=== PATIENT | male | born 1970 | race Caucasian/White ===

== ENCOUNTER 2025-07-16 06:23 | Day surgery (SDC) | payer OTHER, SELFPAY ==
--- OUTSIDE RECORDS SUMMARY | 2025-07-05 13:33 | XMS_ITS | Patient Health Record ---
Author Organization [facility] Address [address] [place] [address] Care Team Providers Care Student Finance Specialist Name Role Phone ANTHONY VIKASCALIXTO Primary Care Provider U Troy Francis Jr Unavailable [phone] Allergies No Known Allergies Reason For Referral Referring Provider First Name Gil Referring Provider Last Name Hortencia Referring Provider Speciality Internal M edicine Referred Organization [facility] Referred Provider Troy Rosales Jr Referred Address [address] [facility],[place], [place],[address], Referred Provider Specialty Gastroentero logy General Notes Bessie Griffin 2024 02:11:23 PM > REQUESTED A FAMILY HEALTH PLAN REFERRAL FOR VISIT WITH DR ROSALES ON 04-18-25 (SAID MARCH 14 ) [phone] screening colon Referral Priority Routine Medications Medication SIG (Take, Route, Frequency, Duration) Notes Start Date End Date Status Sertraline HCl 25 MG Tablet 1 tablet Orally Once a day; Duration: 30 day(s) 04/18/2025 Active Flonase 04/18/2025 Active Immunizations Vaccine Route Administration Date Status Comme nts Influenza Unknown 05/01/2024 Administered Social History Tobacco Use: Social History Observation Description Date Details (start date - stop date) Never Smoker NA - NA Social History Drug/Alcohol: Social Info Question Answer Notes AUDIT-C (Standard) Did you have a drink containing alcohol in the past year? No Points 0 Interpretation Negative Tobacco Use: Social Info Question Answer Notes Tobacco Control (Standard) Tobacco use: Nonsmoker Additional Details Category Social Info Options Details Miscellaneous: Marital status: Occupation: works full-time Problems Problem Type SNOMED Code ICD Code Onset Dates Problem Status W/U Status Risk Notes Problem Gastrointestinal tract problem (814759352) Abn findings-GI tract (R93.3) Active confirmed Problem Ulcerative colitis (14925124) Ulcerative colitis (K51.90) Active confirmed Vital Signs Temperature 98.9 degrees Fahrenheit 04/18/2025 Blood pressure diastolic 01 mm Hg 04/18/2025 Height 69 in 04/18/2025 Blood pressure systolic 001 mm Hg 04/18/2025 Weight 201 lbs 04/18/2025 BMI 29.68 kg/m2 04/18/2025 Encounters Encounter Location Date Provider Diagnosis [facility] [address] [place] [id number] 04/18/2025 Troy Rosales Jr Ulcerative colitis K51.90 and Abn findings-GI tract R93.3 [facility] [address] [place] [id number] 04/18/2025 Troy Rosales Jr Assessments Encounter Date Diagnosis (ICD Code) Assessment Notes Treatment Notes Treatment Clinical Notes Section Notes 04/18/2025 Abn findings-GI tract (ICD-10 - R93.3) At this time, he is doing well. We discussed ulcerative colitis today. He is due for follow-up colonoscopy. This will be arranged at his convenience. He will remain off medications based on his lack of clinical symptoms. We did discuss using MiraLAX more aggressively for his constipation. 04/18/2025 Ulcerative colitis (ICD-10 - K51.90) At this time, he is doing well. We discussed ulcerative colitis today. He is due for follow-up colonoscopy. This will be arranged at his convenience. He will remain off medications based on his lack of clinical symptoms. We did discuss using MiraLAX more aggressively for his constipation. Plan Of Treatment Future Test Test Name Order Date COLONOSCOPY 04/18/2025 Next Appt Details Provider Name:Troy blakely Jr, 07/16/2025 07:30:00 AM, [address] [facility] , [place], [place], [id number], Insurance Providers Payer Name Payer Address Payer Phone Subscriber Number Group Number Insured Name Patient Relationship to Insured Coverage Start Date Coverage End Date [facility] ([employer]) [address] [place] [address] [id number] JENNA DORADO Self - patient is the insured Medical (General) History Medical History History ICD Code melanoma in 2007 stage 3 lymphedema in right arm Ulcerative colitis, diagnose d 1995, previous treatment with sulfasalazine and steroids, off all treatment since before last colonoscopy in 2019 which was normal. Surgical History Surgery Date(Month/Year) lymph nodes removed on right flank broken left leg, tibia, fibula, pins
[2025-07-10 11:50] VITALS: BMI 29.7
--- NOTE | 2025-07-10 13:55 | HO.ANESPROP2 ---
Documented by User: Rocío Shine NP 07/10/25 13:55 HPI - Anesthesia Eval Consult details Narrative: 54yo M for Colonoscopy [facility] Past Medical History Medical History Ulcerative colitis Lymphedema Melanoma Surgical History Surgical History History of arthroscopy of both knees History of open reduction and internal fixation (ORIF) procedure Hx of lymph node excision H/O colonoscopy Social History Social History Household Members: Spouse Patient Tobacco Use Status: Never used Tobacco Use of substances other than those prescribed or required for medical reasons: No Are you DNR?: No Advance Directives: No Advance Directives Information Provided: Yes Meds Allergies Allergy/AdvReac Type Severity Reaction Status Date / Time No Known Allergies Allergy Verified 07/10/25 11:46 Home Medications ?Medication ?Instructions ?Recorded ?Confirmed ?Last Taken ?Type fluticasone propionate 50 1 spray intranasal DAILY PRN 07/10/25 07/10/25 Unknown History mcg/actuation nasal allergies spray,suspension sertraline 25 mg tablet 25 mg PO DAILY 07/10/25 07/16/25 07/16/25 History Exam Height,Weight and Vital Signs: Height 5 ft 9 in Weight 91.172 kg Assessment and Plan Assessment Anesthesia Assessment: Chart Reviewed Documented by User: Moe Vivas MD 07/16/25 08:21 [facility] Past Medical History Medical History Ulcerative colitis Lymphedema Melanoma Family History Family history of problems with anesthesia: No Surgical History Surgical History History of arthroscopy of both knees History of open reduction and internal fixation (ORIF) procedure Hx of lymph node excision H/O colonoscopy History of Problems with Anesthesia: No Social History Social History Household Members: Spouse Patient Tobacco Use Status: Never used Tobacco Use of substances other than those prescribed or required for medical reasons: No Are you DNR?: No Advance Directives: No Advance Directives Information Provided: Yes Meds Allergies Allergy/AdvReac Type Severity Reaction Status Date / Time No Known Allergies Allergy Verified 07/10/25 11:46 Home Medications ?Medication ?Instructions ?Recorded ?Confirmed ?Last Taken ?Type fluticasone propionate 50 1 spray intranasal DAILY PRN 07/10/25 07/10/25 Unknown History mcg/actuation nasal allergies spray,suspension sertraline 25 mg tablet 25 mg PO DAILY 07/10/25 07/16/25 07/16/25 History Exam Exam Date and Time: 07/16/25 Airway Mallampati Class: II TM Dist: >3cm Neck ROM: Full Heart: rrr Lungs: ctab vesicular Assessment and Plan Assessment Anesthesia Assessment: Anesthesia Plan Discussed Final Anesthetic Review Family History of Problems with Anesthesia: No History of Problems with Anesthesia: No NPO: Yes ASA Class: II Final Preanesthetic Review: No Changes in Pt Med Stat, Meds/Allgs Chart Reviewed, Consent Obtained/Reviewed and Anes Risks/Benef Reviewed Patient Risk: Low Procedure Risk: Low Anesthetic Plan Anesthetic Plan: MAC: Disposition: Standard PACU
[2025-07-16 07:02] VITALS: BMI 28.6
[2025-07-16 07:04] VITALS: BP 127/85; PULSE 71; RESP 16; TEMP 36.3; O2SAT 97
[2025-07-16] MEDS: Lactated Ringers 1,000 ML 100 ML IVCONT (07:22)
--- NOTE | 2025-07-16 07:40 | MHC.SHP ---
Pre-Procedural Eval Section A - 24 Hr Update-Section A only Date of Service: 07/16/25 Section B - Complete if H&P > 30 days Chief Complaint: ulcerative colitis,abnormal findings Details of Present Illness: see H&P no changes Relevant Family History (Specify if Yes): No Relevant Social History: None Present Medications: see Short Stay Collaborative assessment Medical History: No relevant PMH Allergies: Allergies Allergy/AdvReac Type Severity Reaction Status Date / Time No Known Allergies Allergy Verified 07/10/25 11:46 Review of Systems Sugical H&P ROS: Negative: Constitution, Cardiovascular, Respiratory, Neurological, Psychiatric, Hem-Onc, Allergic/Immunologic, Gastrointestinal, Genitourinary, Musculoskeletal, Integumentary, Endocrine and Eyes/Ears/Nose/Throat Exam Surgical H&P Exam: Normal: HEENT, Normal: Heart, Normal: Lungs, Normal: Extremities, Normal: Abdomen, Normal: Skin and Normal: Neurological Plan Diagnosis/Plan: Unchanged I have reviewed the history and physical and performed a pertinent physical examination on my patient. No changes have occurred unless specified. Time Spent With Patient Time: Total time managing care of this patient today ____ minutes.
[2025-07-16 08:30] VITALS: BP 133/88; PULSE 58; RESP 12; TEMP 36.1; O2SAT 98
[2025-07-16 08:45] VITALS: BP 121/85; PULSE 60; RESP 16; TEMP 36.1; O2SAT 98
--- NOTE | 2025-07-17 07:01 | OP_ITS ---
DATE OF SERVICE: 07/16/2025 SURGEON: Troy Seth MD INDICATIONS: Ulcerative colitis. PREOPERATIVE DIAGNOSIS: POSTOPERATIVE DIAGNOSIS: PROCEDURE PERFORMED: Colonoscopy to the cecum with biopsy. ESTIMATED BLOOD LOSS: COMPLICATIONS: ANESTHESIA: ASSISTANTS: SPECIMENS: MEDICATIONS: Monitored anesthesia care. DESCRIPTION OF PROCEDURE: A history and physical performed. The risks and benefits of the procedure were explained to the patient. An informed consent was obtained. The patient was placed in the left lateral decubitus position. A digital rectal exam was performed and was found to be normal. The Olympus pediatric video colonoscope was introduced into the rectum and advanced to the cecum. The cecum was identified by transillumination, palpation, and identification of ileocecal valve. Examination was performed. The scope was removed. He tolerated the procedure well and was returned to recovery area in stable condition. FINDINGS: The terminal ileum was not examined. The visualized colonic mucosa was normal. The quality of the prep was good. Biopsies were obtained throughout the colon. There was no evidence of active colitis. No polyps were seen. Retroflexed examination showed internal hemorrhoids. IMPRESSION: Normal colonoscopy. RECOMMENDATION: Follow up the biopsy results. MD RUCHI Sandoval/KELLL / [id number]
== END 2025-07-16 09:06 | disposition home or self-care (01) ==
PROVIDERS: PCP Nurse Practitioner Family; Visit Provider Internal Medicine Gastroenterology
PROC: 0DJD8ZZ Inspection of Lower Intestinal Tract, Via Natural or Artificial Opening Endoscopic (ICD-10-PCS; CPT 45378; principal; 2025-07-16 07:30)
DX: K51.90 Ulcerative colitis, unspecified, without complications (principal); R93.3 Abnormal findings on diagnostic imaging of other parts of digestive tract
CPT/HCPCS: 45380; 88305; J2003; J2704